=== PATIENT | female | born 1945 | race Caucasian/White ===

== ENCOUNTER 2016-06-01 11:15 | Inpatient (IN) | payer MEDICARE ==
[~2016-06-01] VITALS: Ht 167.6 cm; Wt 57.6 kg
[2016-06-01] MEDS ORDERED: IV SET PRIMARY 1 EA INFUS.SET MC ONE (11:27)
[2016-06-01] MEDS ORDERED: IV NS 0.9% 1,000 ML ONE ×2 (11:27→12:43)
[2016-06-01] MEDS ORDERED: IV NS 0.9% 1,000 ML BAG IV ONE (11:30)
[2016-06-01 11:51] LABS: BASOPHILS # (AUTO) 0.1 /CMM (0.0-0.2); BASOPHILS % (AUTO) 1.1 % (0.0-2.0); DIFF TOTAL % 100 %; EOSINOPHILS % (AUTO) 0.2 % (0.0-6.0); HEMATOCRIT 40 % (33-45); HEMOGLOBIN 12.7 g/dL (11.5-14.8); LYMPHOCYTES # (AUTO) 0.4 /CMM (0.8-4.8); LYMPHOCYTES % (AUTO) 3.5 % (20.0-44.0); MEAN CORPUSCULAR HEMOGLOBIN 33 PG (26.0-33.0); MEAN CORPUSCULAR HGB CONC 32 g/dl (31.0-36.0); MEAN CORPUSCULAR VOLUME 104 fL (82-100); MONOCYTES # (AUTO) 0.2 /CMM (0.1-1.30); MONOCYTES % (AUTO) 1.6 % (2.0-12.0); NEUTROPHILS # (AUTO) 10.5 /CMM (1.8-8.9); NEUTROPHILS % (AUTO) 93.6 % (43.0-81.0); PLATELET COUNT (AUTO) 238 /CMM (150-450); RED BLOOD CELL COUNT(AUTO) 3.81 MIL/uL (4.0-5.2); WHITE BLOOD COUNT (AUTO) 11.2 K/uL (4.3-11.0)
[2016-06-01 12:03] LABS: ANION GAP 15 (5-14); CALCIUM, SERUM 8.3 mg/dL (8.5-10.1); CARBON DIOXIDE 23 mmol/L (21-32); CHLORIDE 101 mmol/L (98-107); CREATININE 0.9 mg/dL (0.6-1.3); GFR 62 mL/min (>60); GLUCOSE 134 mg/dL (74-106); POTASSIUM 3.7 mmol/L (3.5-5.1); SODIUM SERUM 136 mmol/L (136-145); UREA NITROGEN, BLOOD 11 mg/dL (7-18)
[2016-06-01 12:06] LABS: INR 1.01 (0.87-1.13); PROTHROMBIN TIME 10.6 SECS (9.5-12.7)
[2016-06-01 12:08] LABS: ALANINE AMINOTRANSFERASE 19 U/L (12-78); ALBUMIN 3.5 g/dL (3.4-5.0); ASPARTATE AMINOTRANSFERASE 25 U/L (15-37); BILIRUBIN,DIRECT 0.2 mg/dL (0.0-0.2); BILIRUBIN,TOTAL 1.3 mg/dL (0.2-1.0); INDIRECT BILIRUBIN 1.1 mg/dL (0.0-1.1); TOTAL PROTEIN, SERUM 6.6 g/dL (6.4-8.2)
[2016-06-01 12:10] LABS: TROPONIN I < 0.017 ng/mL (0.00-0.056)
[2016-06-01 12:30] LABS: ADD UA MICROSCOPIC YES; KETONES,URINE Trace (NEGATIVE); LEUKOCYTE ESTERASE ,URINE Negative (NEGATIVE); PH,URINE >9.0 (5.0-8.0)
[2016-06-01 12:32] LABS: LACTIC ACID 4.6 mmol/L (0.4-2.0)
[2016-06-01 12:40] LABS: ADD URINE CULTURE YES
[2016-06-01] MEDS ORDERED: IV SET PRIMARY PUMP SET 1 EA INFUS.SET MC ONE ×2 (12:43→17:09)
[2016-06-01] MEDS ORDERED: ZOLP5TAB2 PO (12:47)
[2016-06-01] MEDS ORDERED: CYCL-343 PO (12:47)
[2016-06-01] MEDS ORDERED: METH2.5T PO (12:47)
[2016-06-01] MEDS ORDERED: ALEN70TA45 PO (12:47)
[2016-06-01] MEDS ORDERED: VALA500T35 PO (12:47)
[2016-06-01] MEDS ORDERED: INFL100V IV (12:47)
[2016-06-01 12:48] LABS: *LACTIC ACID REFLEX FLAG YES
[2016-06-01] MEDS ORDERED: PIPERACILLIN /TAZOBACTAM 3.375 G in IV D5W 50 ML IV ONE (13:00)
[2016-06-01] MEDS ORDERED: IV NS 0.9% 1,000 ML IV ONE (13:00)
[2016-06-01] MEDS: ACETAMINOPHEN 325 MG TABLET PO PRN ×2 (14:47→20:54)
[2016-06-01 16:00] VITALS: BP 106/56
[2016-06-01 16:14] VITALS: BP 106/56
[2016-06-01] MEDS ORDERED: SECONDARY IV SET 1 EA INFUS.SET MC ONE (17:09)
[2016-06-01] MEDS: LEVOFLOXACIN 500 MG /D5W 100ML 500 MG in PREMIX 1 EA IV SCH (17:42)
[2016-06-01] MEDS: VALACYCLOVIR HCL 500 MG TABLET PO SCH (17:43)
[2016-06-01] MEDS: IV NS W/20MEQ KCL 1L IV PRN ×2 (17:43)
[2016-06-01 20:00] VITALS: BP 94/51
[2016-06-01] MEDS ORDERED: CYCLOBENZAPRINE 10 MG TABLET PO SCH (22:00)
[2016-06-01] MEDS ORDERED: ZOLPIDEM TARTRATE 5 MG TABLET PO SCH (22:00)
[2016-06-02] VITALS: BP 90/40
[2016-06-02 04:00] VITALS: BP 91/40
[2016-06-02 06:46] LABS: BASOPHILS % (AUTO) 0.3 % (0.0-2.0); DIFF TOTAL % 100 %; EOSINOPHILS # (AUTO) 0.1 /CMM (0.0-0.7); EOSINOPHILS % (AUTO) 0.8 % (0.0-6.0); HEMATOCRIT 35 % (33-45); HEMOGLOBIN 11.7 g/dL (11.5-14.8); LYMPHOCYTES # (AUTO) 1.1 /CMM (0.8-4.8); LYMPHOCYTES % (AUTO) 9.7 % (20.0-44.0); MEAN CORPUSCULAR HEMOGLOBIN 34 PG (26.0-33.0); MEAN CORPUSCULAR HGB CONC 33 g/dl (31.0-36.0); MEAN CORPUSCULAR VOLUME 102 fL (82-100); MONOCYTES # (AUTO) 0.6 /CMM (0.1-1.30); MONOCYTES % (AUTO) 5.2 % (2.0-12.0); NEUTROPHILS # (AUTO) 9.8 /CMM (1.8-8.9); PLATELET COUNT (AUTO) 211 /CMM (150-450); RED BLOOD CELL COUNT(AUTO) 3.49 MIL/uL (4.0-5.2); WHITE BLOOD COUNT (AUTO) 11.7 K/uL (4.3-11.0)
[2016-06-02 06:55] LABS: CALCIUM, SERUM 7.5 mg/dL (8.5-10.1); CREATININE 0.7 mg/dL (0.6-1.3); POTASSIUM 4.1 mmol/L (3.5-5.1)
[2016-06-02 08:00] VITALS: BP 97/47
[2016-06-02] MEDS: VALACYCLOVIR HCL 500 MG TABLET PO SCH (09:12)
[2016-06-02] MEDS: IV NS W/20MEQ KCL 1L IV PRN ×2 (09:13)
[2016-06-02 16:00] VITALS: BP 99/63
[2016-06-02] MEDS: LEVOFLOXACIN 500 MG /D5W 100ML 500 MG in PREMIX 1 EA IV SCH (16:19)
[2016-06-07] MEDS ORDERED: METHOTREXATE SODIUM (2.5MG) 2.5 MG TABLET PO SCH (14:00)
== END 2016-06-02 18:52 | disposition home or self-care (01) | DRG 872 ==
LOC: ER 11:17 → TELE1 13:55 → MEDSG1 06-02 11:29
PROVIDERS: ADMIT Internal Medicine; ATTEND Internal Medicine
DX: A41.9 Sepsis, unspecified organism (principal); N39.0 Urinary tract infection, site not specified; E87.2 Acidosis; M06.9 Rheumatoid arthritis, unspecified; B96.20 Unspecified Escherichia coli [E. coli] as the cause of diseases classified elsewhere; M81.0 Age-related osteoporosis without current pathological fracture; Z79.899 Other long term (current) drug therapy
CPT/HCPCS: 36415; 71010-TC; 80048-TC; 80076-TC; 81000-TC; 83605-TC; 84484-TC; 85025-TC; 85730-TC; 87040-TC; 87081-TC; 87086-TC; 87186-TC; A4216; A4606; J1956; J2543; J3480; J7030; J7060; Z7610

== ENCOUNTER 2018-08-04 21:16 | Emergency (ER) | payer MEDICARE ==
[~2018-08-04] VITALS: Ht 167.6 cm; Wt 53.5 kg
[~2018-08-04 21:16] MED LIST: ALEN70TA6 PO; CYCL10TA9 PO; INFL100V IV; METH2.5T PO; VALA500T36 PO; ZOLP5TAB2 PO
--- NOTE | 2018-08-04 21:30 | NUR ---
BIB SELF WITH . AAOX4. AMBULATORY. BREATHING EVEN AND UNLABORED. CAME WITH C/O NAUSEA, VOMITING AND DIARRHEA X3 EPISODE SINCE 5PM. PT STATES THAT SHE FINISHED HER USUAL TREATMENT OF REMICADE. THIS IS THE FIRST TIME THIS PT FELT THIS WAY AFTER HAVING THE REMICADE. TO ER BED 1. MD AT BEDSIDE. AWAITING FOR ORDERS.
[2018-08-04] MEDS ORDERED: ONDANSETRON HCL/PF 4 MG/2 ML VIAL ONE (21:40)
--- NOTE | 2018-08-04 21:50 | NUR ---
IV LINE OBTAINED ON RFA 20G BLOOD DRAWN, LAB AT BEDSIDE.
[2018-08-04] MEDS ORDERED: ONDANSETRON HCL/PF 4 MG/2 ML VIAL IVP ONE (22:00)
[2018-08-04 22:12] LABS: BASOPHILS # (AUTO) 0.1 /CMM (0.0-0.2); BASOPHILS % (AUTO) 0.8 % (0.0-2.0); EOSINOPHILS % (AUTO) 0.9 % (0.0-6.0); HEMATOCRIT 41 % (33-45); HEMOGLOBIN 13.8 g/dL (11.5-14.8); LYMPHOCYTES # (AUTO) 1.5 /CMM (0.8-4.8); MEAN CORPUSCULAR HGB CONC 34 g/dl (31.0-36.0); MEAN CORPUSCULAR VOLUME 106 fL (82-100); MONOCYTES # (AUTO) 0.6 /CMM (0.1-1.30); MONOCYTES % (AUTO) 4.8 % (2.0-12.0); NEUTROPHILS # (AUTO) 9.4 /CMM (1.8-8.9); NEUTROPHILS % (AUTO) 80.5 % (43.0-81.0); PLATELET COUNT (AUTO) 231 /CMM (150-450); RED BLOOD CELL COUNT(AUTO) 3.82 MIL/uL (4.0-5.2); WHITE BLOOD COUNT (AUTO) 11.7 K/uL (4.3-11.0)
[2018-08-04 22:17] LABS: CALCIUM, SERUM 8.4 mg/dL (8.5-10.1); CARBON DIOXIDE 29 mmol/L (21-32); CHLORIDE 104 mmol/L (98-107); CREATININE 0.7 mg/dL (0.6-1.3); GLUCOSE 114 mg/dL (74-106); POTASSIUM 4.2 mmol/L (3.5-5.1); SODIUM SERUM 139 mmol/L (136-145); UREA NITROGEN, BLOOD 9 mg/dL (7-18)
[2018-08-04 22:23] LABS: ALANINE AMINOTRANSFERASE 27 U/L (12-78); ALBUMIN 3.6 g/dL (3.4-5.0); ALKALINE PHOSPHATASE 52 U/L (46-116); ASPARTATE AMINOTRANSFERASE 33 U/L (15-37); BILIRUBIN,DIRECT 0.1 mg/dL (0.0-0.2); BILIRUBIN,TOTAL 0.7 mg/dL (0.2-1.0); TOTAL PROTEIN, SERUM 7.2 g/dL (6.4-8.2)
[2018-08-04 22:45] LABS: LYMPHOCYTES % (MANUAL) 12 % (16-48); MONOCYTES % (MANUAL) 3 % (0-11.0); NEUTROPHILS % (MANUAL) 85 (42-76)
--- NOTE | 2018-08-04 22:47 | NUR ---
PT VERBALIZED RELIEF FROM NAUSEA.
--- NOTE | 2018-08-04 23:04 | NUR ---
DARÍO VILA () [phone] CALL FOR ANY UPDATE.
--- NOTE | 2018-08-04 23:31 | NUR ---
DCPatient discharged to home in stable condition. Written and verbal after care instructions given. Patient verbalizes understanding of instruction.IV removed. Catheter intact and site benign. Pressure and 4x4 applied to site. No bleeding noted.Pt ambulatory with a steady gait
[2018-08-04 23:52] VITALS: BP 118/68
== END 2018-08-04 23:33 | disposition home or self-care (01) ==
LOC: ER 21:17
DX: R07.89 Other chest pain (principal); R19.7 Diarrhea, unspecified; R11.2 Nausea with vomiting, unspecified; M06.9 Rheumatoid arthritis, unspecified; Z79.899 Other long term (current) drug therapy
CPT/HCPCS: 36415; 71045; 80048; 80076; 84484; 85025; 93005; 96374; 99284; J2405